=== PATIENT | female | born 1935 | race African-American/Black ===

== ENCOUNTER 2021-05-31 23:49 | Emergency (ER) | payer MEDICARE, OTHER ==
[~2021-05-31] VITALS: Ht 165.1 cm; Wt 53.4 kg
--- NOTE | ~2021-05-31 | EMS ---
[address] [address] EMS Patient Care Report Name: REAL MCKAY Room #: DEP DANIAL Bydr#: [id number] Admission: 05/31/21 Attend Phys: Discharge: 06/01/21 Date of : 35 Report #: [id number] THIS REPORT FOR: //name// Report Transmitted: 06/01/2021 09:06 EMS Care Summary [place], [place]/[facility] Incident [id number] @ 05/31/2021 23:14 Incident Location [address] Patient REAL MCKAY Female, 85 Years 1935 Patient Address [address] [place] [address] Patient History Kidney/Renal Failure, Patient Allergies No known allergies, Patient Medications None Reported, Chief Complaint ALOC Disposition Transported No Lights/[place] Dispatch Reason Sick Person Transported To [facility] Narrative Dispatched to a [facility] facility in regards to an unconscious. Upon arrival, I saw patient laying in bed in her room. initial assessment revealed that patient was GCS14 and did not appear to be in respiratory distress. [address] [address] EMS Patient Care Report Name: REAL MCKAY Room #: DEP KayceeMayo#: [id number] Admission: 05/31/21 Attend Phys: Discharge: 06/01/21 Date of : 35 Report #: [id number] Patient's chief complaint was ALOC. Staff stated that patient was last seen normal around 2 hours prior to our arrival. Staff also stated that patient had a BG of 31. Physical assessment revealed that patient was pink warm and dry. Patient was transferred to our cot. Patient was secured and lifted into the ambulance. Treatment rendered was obtaining a complete set of baseline vital signs including a blood glucose reading, 3 lead ECG monitoring, and administerin D10 through the IV the staff had obtained. Patient was transported to [facility] and radio report was given en route. Patient care was transferred on arrival. Initial Vitals @23:31P: 94,R: 16,BP: 162/69,Pain: 0/10,GCS: 14,Glucose: 84,SpO2: 100,Revised Trauma: 12, @23:40P: 95,R: 16,BP: 151/72,Pain: 0/10,GCS: 14,SpO2: 100,Revised Trauma: 12, Assessments @23:22MENTAL:Person Oriented,SKIN:HEENT:LUNG SOUNDS:ABDOMEN:PELVIS//GI:EXTREMITIES:PULSE:NEURO:No Abnormalities, Impression Diabetic Hyperglycemia Procedures @23:25 ALS Assessment Response: UnchangedSucceeded @PTAIV Therapy - Saline Lock 10cc (24 ga) Site: Hand-Right Response: UnchangedSucceeded @23:41 Dextrose 10% - 100 Milliliters (ml) - Intraosseous (IO) Response: Improved @23:43 3-Lead ECG Response: UnchangedSucceeded Timeline [employer]PER[employer] PROP MAKING,IV Therapy - Saline Lock 10cc 24 ga Site: Hand-Right,Response: UnchangedSucceeded, 23:12,Call Received 23:12,Dispatch Notified 23:14,Dispatched 23:15,En Route 23:21,On Scene 23:22,At Patient 23:25,ALS Assessment,Response: UnchangedSucceeded, 23:31,BP: 162/69 M,PULSE: 94,RR: 16 R,SPO2: 100 Ox,ETCO2: ,B,PAIN: 0,GCS: 14, 23:40,BP: 151/72 M,PULSE: 95,RR: 16 R,SPO2: 100 Ox,ETCO2: ,BG: ,PAIN: 0,GCS: 14, 23:41,Dextrose 10% - 100 Milliliters (ml) - Intraosseous (IO),Response: Improved [address] [address] EMS Patient Care Report Name: REAL MCKAY Room #: DEP Carson#: [id number] Admission: 05/31/21 Attend Phys: Discharge: 06/01/21 Date of : 35 Report #: [id number] 23:41,Depart Scene 23:43,3-Lead ECG,Response: UnchangedSucceeded, 23:45,At Destination 12:02,Call Closed Disclaimer v1.1 Copyright 2020 [employer] This EMS Care Summary contains data elements from the applicable legal record (which may be displayed differently). It is designed to provide pertinent information for the following purposes: continuity of care, clinical quality, and state data reporting. The complete legal record is available to ED staff and administrators of the receiving hospital in [facility]'s Patient Tracker. All data is provided "as is."
[2021-06-01] MEDS ORDERED: TYLENOL325 M1 PO (00:07)
[2021-06-01] MEDS ORDERED: NORVASC10 MG PO (00:08)
[2021-06-01] MEDS ORDERED: ARICEPT10 M1 PO (00:08)
[2021-06-01] MEDS ORDERED: CULTURELLE KID1 EAC1 PO (00:08)
[2021-06-01] MEDS ORDERED: CALCIUM CARBON500 MG PO (00:09)
[2021-06-01] MEDS ORDERED: DECARA1250 MCG PO (00:10)
[2021-06-01] MEDS ORDERED: COMBIGAN EYE DR10 ML EA. EYE (00:11)
[2021-06-01] MEDS ORDERED: FEROSUL325 M1 PO (00:12)
[2021-06-01] MEDS ORDERED: GLUCAGON EMERGEN1 MG INJECTION (00:14)
[2021-06-01] MEDS ORDERED: GLYCOLAX119 GM PO (00:15)
[2021-06-01] MEDS ORDERED: HEPARIN SO5000 UNIT1 INJECTION (00:16)
[2021-06-01] MEDS ORDERED: HYDRALAZINE 5050 MG PO (00:16)
[2021-06-01] MEDS ORDERED: ADMELOG SO100 UNIT/1 SUBQ (00:17)
[2021-06-01] MEDS ORDERED: LOVASTATIN 20 M20 MG PO (00:17)
[2021-06-01 02:45] LABS: URINE BILIRUBIN NEGATIVE (Negative); URINE BLOOD TRACE (Negative); URINE CLARITY CLEAR; URINE COLOR YELLOW; URINE GLUCOSE-RANDOM* NEGATIVE (Negative); URINE KETONES NEGATIVE (Negative); URINE NITRITE-REFLEX NEGATIVE (Negative); URINE PROTEIN (DIPSTICK) NEGATIVE (Negative); URINE SPECIFIC GRAVITY <= 1.005 (1.005-1.035); URINE UROBILINOGEN 0.2 E.U./dl (0.2-1.0)
[2021-06-01 02:54] LABS: URINE LEUKOCYTES-REFLEX 3+ (Negative)
[2021-06-01 02:56] LABS: BACTERIA-REFLEX 1-9 Few /HPF (None Seen); CASTS None Seen /LPF (None Seen); CRYSTALS None Seen /LPF (None Seen); MUCUS 0-3 Light strn/LPF (None Seen); SQUAMOUS 0-3 Few /LPF (0-3); URINE RBC 1-2 Rare /HPF (NONE SEEN); WBC CLUMPS Few (None Seen)
[2021-06-01 03:27] LABS: BASOPHILS 0.7 % (0.0-2.0); EOSINOPHILS 1.5 % (0.0-3.0); HEMATOCRIT 29.2 % (37.0-47.0); HEMOGLOBIN 8.8 gm/dL (12.0-15.0); LYMPHOCYTES 7.3 % (24.0-44.0); MCH 23.6 pg (26.0-34.0); MCV 78.5 fL (80.0-100.0); MONOCYTES 6.3 % (1.0-8.0); PLATELET COUNT 399 thou/uL (150-400); POLYS 84.2 % (36.0-66.0); RBC 3.73 mil/uL (4.20-5.00); RDW 21.3 % (10.5-14.5); WBC 15.4 thou/uL (4.0-11.0)
[2021-06-01 03:29] LABS: ANION GAP 4 mmol/L (7-16); BUN 7 mg/dL (7-18); CALCIUM 8.6 mg/dL (8.5-10.1); CHLORIDE 97 mmol/L (98-107); CO2 33 mmol/L (21-32); CREATININE 0.9 mg/dL (0.6-1.0); GLUCOSE 94 mg/dL (74-106); POTASSIUM 5.9 mmol/L (3.5-5.1); SODIUM 134 mmol/L (136-145)
[2021-06-01 03:36] LABS: ALBUMIN 5.1 g/dL (3.4-5.0); DIRECT BILIRUBIN < 0.1 mg/dL (<0.1-0.2); SGOT 65 U/L (15-37); SGPT 22 U/L (14-59); TOTAL BILIRUBIN 0.5 mg/dL (0.2-1.0); TOTAL PROTEIN 8.1 g/dL (6.4-8.2)
[2021-06-01] MEDS ORDERED: KEFLEX250 MG PO (03:42)
[2021-06-01 07:35] VITALS: BP 176/64
== END 2021-06-01 07:41 ==
LOC: ER 23:49
PROVIDERS: Student in an Organized Health Care Education/Training Program
DX: E11.649 Type 2 diabetes mellitus with hypoglycemia without coma (principal); N39.0 Urinary tract infection, site not specified; J96.10 Chronic respiratory failure, unspecified whether with hypoxia or hypercapnia; I48.0 Paroxysmal atrial fibrillation; I10 Essential (primary) hypertension; H40.9 Unspecified glaucoma; E78.5 Hyperlipidemia, unspecified; E11.9 Type 2 diabetes mellitus without complications; I42.9 Cardiomyopathy, unspecified; Z99.2 Dependence on renal dialysis; Z86.74 Personal history of sudden cardiac arrest; Z79.891 Long term (current) use of opiate analgesic; Z79.4 Long term (current) use of insulin; Z79.899 Other long term (current) drug therapy; Z79.1 Long term (current) use of non-steroidal anti-inflammatories (NSAID)